=== PATIENT | female | born 1975 | race Caucasian/White ===

== ENCOUNTER 2017-05-05 10:13 | Emergency (ER) | payer OTHER ==
[~2017-05-05] VITALS: Ht 157.5 cm; Wt 85.3 kg
[2017-05-05 10:19] VITALS: BP 145/96
[2017-05-05] MEDS ORDERED: ASPIRIN 81 MG TAB.CHEW PO ONE (10:55)
[2017-05-05] MEDS ORDERED: NITROGLYCERIN 2% 1 GM PKT TP ONE (10:55)
[2017-05-05 11:08] LABS: BASOPHILS # (AUTO) 0.1 K/uL (0.00-0.22); BASOPHILS % (AUTO) 1.1 % (0.0-2.0); EOSINOPHILS # (AUTO) 0.6 K/uL (0-0.4); EOSINOPHILS % (AUTO) 7.9 % (0.0-4.0); HEMATOCRIT 40.1 % (36-48); HEMOGLOBIN 13.4 g/dL (12.0-16.0); LYMPHOCYTES # (AUTO) 2.3 K/uL (2.5-16.5); LYMPHOCYTES % (AUTO) 29.8 % (20.5-51.1); MEAN CORPUSCULAR HEMOGLOBIN 31 pg (27-31); MEAN CORPUSCULAR HGB CONC 33 g/dL (33-37); MEAN CORPUSCULAR VOLUME 92 fL (80-94); MONOCYTES # (AUTO) 0.2 K/uL (0.8-1.0); MONOCYTES % (AUTO) 2.6 % (1.7-9.3); NEUTROPHILS # (AUTO) 4.6 K/uL (1.8-7.7); NEUTROPHILS % (AUTO) 58.6 % (42.2-75.2); PLATELET COUNT (AUTO) 280 K/uL (140-450); RED BLOOD CELL COUNT(AUTO) 4.34 MIL/uL (4.20-5.40); RED CELL DISTRIBUTION WIDTH 12.9 % (11.6-13.7); WHITE BLOOD COUNT (AUTO) 7.8 K/uL (4.8-10.8)
[2017-05-05 11:17] LABS: ANION GAP 12.4 (8-16); CARBON DIOXIDE 26.2 mmol/L (21-32); CREATININE 0.7 mg/dL (0.6-1.3); POTASSIUM 3.6 mmol/L (3.5-5.1)
[2017-05-05 11:23] LABS: PROTHROMBIN TIME 10.4 secs (10.8-13.4); TOTAL BILIRUBIN 0.4 mg/dL (0.0-1.0)
[2017-05-05] MEDS ORDERED: METF500T PO (11:56)
[2017-05-05] MEDS ORDERED: LISI5TAB18 PO (11:56)
[2017-05-05] MEDS ORDERED: ONDANSETRON 4 MG/2 ML VIAL IVP PRN (12:05)
[2017-05-05] MEDS ORDERED: MORPHINE SULFATE 4 MG/ML SYR IVP PRN (12:05)
[2017-05-05] MEDS ORDERED: MORPHINE SULFATE 2 MG/ML SYR IVP PRN (12:05)
[2017-05-05 14:00] VITALS: BP 122/67
[2017-05-05] MEDS: ACETAMINOPHEN 325 MG TAB PO PRN ×2 (14:42→21:59)
[2017-05-05 16:00] VITALS: BP 101/58
[2017-05-05] MEDS ORDERED: INSULIN LISPRO SLIDING SCALE 100 UNITS/ML VIAL SUBQ PRN ×2 (16:15)
[2017-05-05] MEDS: BLOOD GLUCOSE MONITORING 1 DEV DEV FS SCH ×2 (16:51→21:53)
[2017-05-05 20:00] VITALS: BP 113/64
[2017-05-05 21:07] LABS: CREATINE KINASE MB 0.7 ng/mL (0-3.6)
[2017-05-06] VITALS: BP 105/57
[2017-05-06 03:18] LABS: BASOPHILS # (AUTO) 0.1 K/uL (0.00-0.22); EOSINOPHILS # (AUTO) 0.8 K/uL (0-0.4); EOSINOPHILS % (AUTO) 8.1 % (0.0-4.0); HEMATOCRIT 37.6 % (36-48); HEMOGLOBIN 12.6 g/dL (12.0-16.0); LYMPHOCYTES # (AUTO) 2.8 K/uL (2.5-16.5); LYMPHOCYTES % (AUTO) 28.9 % (20.5-51.1); MEAN CORPUSCULAR HEMOGLOBIN 31 pg (27-31); MEAN CORPUSCULAR HGB CONC 34 g/dL (33-37); MEAN CORPUSCULAR VOLUME 93 fL (80-94); MONOCYTES # (AUTO) 0.3 K/uL (0.8-1.0); MONOCYTES % (AUTO) 3.1 % (1.7-9.3); NEUTROPHILS # (AUTO) 5.6 K/uL (1.8-7.7); NEUTROPHILS % (AUTO) 58.9 % (42.2-75.2); PLATELET COUNT (AUTO) 253 K/uL (140-450); RED BLOOD CELL COUNT(AUTO) 4.06 MIL/uL (4.20-5.40); RED CELL DISTRIBUTION WIDTH 13.1 % (11.6-13.7); WHITE BLOOD COUNT (AUTO) 9.6 K/uL (4.8-10.8)
[2017-05-06 03:35] LABS: PHOSPHORUS 3.5 mg/dL (2.5-4.9)
[2017-05-06 03:38] LABS: ALBUMIN 3.4 g/dL (3.4-5.0); ANION GAP 10.7 (8-16); CARBON DIOXIDE 26.4 mmol/L (21-32); CREATININE 0.7 mg/dL (0.6-1.3); POTASSIUM 4.1 mmol/L (3.5-5.1); TOTAL BILIRUBIN 0.3 mg/dL (0.0-1.0)
[2017-05-06 04:00] VITALS: BP 116/76
[2017-05-06] MEDS: BLOOD GLUCOSE MONITORING 1 DEV DEV FS SCH (06:29)
[2017-05-06 08:00] VITALS: BP 127/77
[2017-05-06] MEDS ORDERED: ATORVASTATIN 20 MG TAB PO SCH (09:00)
[2017-05-06] MEDS ORDERED: LISINOPRIL 5 MG TAB PO SCH (09:00)
[2017-05-06] MEDS ORDERED: LISINOPRIL 10 MG TAB PO SCH (09:00)
[2017-05-06] MEDS ORDERED: ENOXAPARIN 30 MG/0.3 ML SYR SUBQ SCH (09:00)
[2017-05-06] MEDS ORDERED: ASPIRIN 81 MG TAB.CHEW PO SCH (09:00)
[2017-05-06] MEDS ORDERED: ASPI81CT89 PO (09:25)
== END 2017-05-06 09:55 | disposition home or self-care (01) ==
LOC: MED 10:13 → MTU 12:10
PROVIDERS: ADMIT Hospitalist; ATTEND Hospitalist
DX: R07.89 Other chest pain (principal); I10 Essential (primary) hypertension; E11.9 Type 2 diabetes mellitus without complications
CPT/HCPCS: 36415; 71045; 80053; 80061; 82550; 82553; 82948; 83735; 83880; 84100; 84484; 85025; 85610; 85730; 87081; 93005; 99285; G0378; J1815; J7030; Q0092